=== PATIENT | female | born 1945 | race Caucasian/White ===

== ENCOUNTER → 2016-10-30 | Outpatient (CLI) | payer OTHER ==
[~2016-10-30] MED LIST: APAP500 PO; ASACOL400 MG PO; B-COMPLEX 100400 MC1 PO; BIOTIN1 MG PO; CALCIUM 600 +1 EAC1 PO; COMBIVENT INH; DOXYCYCLINE 10100 MG PO; FEMARA2.5 MG PO; FOLIC ACID; FOLIC ACID1 MG PO; HYDROXYCHLOROQ200 M1 PO; LOMOTIL TABLET1 EACH PO; METHOTREXATE 22.5 MG GT; METROGEL-VAGINA70 GM VG; MOBIC15 MG PO; MUCINEX600 MG PO; MULTIVITAMINS PO; PRILOSEC40 MG PO; SYMBICORT80 MCG/4.1 INH
== END ==
LOC: ULTRA 14:37
DX: I87.2 Venous insufficiency (chronic) (peripheral) (principal); M79.89 Other specified soft tissue disorders; M79.604 Pain in right leg; M79.605 Pain in left leg